=== PATIENT | female | born 1945 | race Caucasian/White ===

== ENCOUNTER 2018-10-04 13:36 | Emergency (ER) | payer MEDICARE ==
--- OUTSIDE RECORDS SUMMARY | 2018-10-04 13:53 | XMS REPORT | Continuity of Care Document ---
:1945 External Reference #:[id number] Author Name Carl Thomas M.D. Address [address] [place] [address] Care Team Providers Name Role Phone Rossy Jacobo M.D. Primary Care Physician Unavailable Payers Type Date Identification Numbers Payment Provider Subscriber Policy Number: [id number] [facility] Sofía Iglesias PayID: [id number] [address] [place] [address] Advance Directives Description No Information Available Problems Date Description Provider Status Onset: Elevated blood-pressure reading Active without diagnosis of hypertension Onset: Seizure Active Onset: Ruptured cerebral aneurysm Active Onset: 04/22/2016 Combined form of senile cataract Rayne Sosa O.D. Active Onset: 04/22/2016 Primary open-angle glaucoma, Rayne Sosa O.D. Active indeterminate stage Onset: 07/25/2016 Nuclear senile cataract Carl Thomas M.D. Active Onset: 07/25/2016 Bilateral primary open angle Carl Thomas M.D. Active glaucoma Onset: 02/06/2017 Bilateral primary open angle Carl Thomas M.D. Active glaucoma Onset: Osteoporosis Active Onset: 05/29/2018 Internal hordeolum Bridgett Sanchez O.D. Active Onset: 06/03/2018 Chalazion Carl Thomas M.D. 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 ETOH Use Occasionally consumes alcohol Tobacco Use Start: Unknown Patient has never smoked Recreational Drug Use Never Used Drugs Smoking Status Reviewed: 09/10/18 Patient has never smoked Allergies, Adverse Reactions, Alerts Date Description Reaction Status Severity Comments 04/22/2016 Lyrica Active 04/22/2016 Lomotil Active 04/22/2016 Contrast Dye Active 04/22/2016 Bacitracin Active Medications Medication Date Status Form Strength Qnty SIG Indications Ordering Provider Alendronate / Active Tablets 70mg Unknown Sodium 0000 Aspirin Adult / Active Tablets DR 81mg daily Unknown Low Dose 0000 Carbatrol / Active Caps ER 200mg Unknown 0000 12HR Lorazepam / Active Tablets 0.5mg Unknown 0000 Neurontin / Active Capsules 100mg twice a Unknown 0000 day every night at bedtime Valsartan-Colton / Active Tablets 160-12.5mg Unknown chlorothiazide 0000 Zonegran / Active Capsules 100mg Unknown 0000 Multi Vitamin 00/ Active Tablets Unknown Daily 0000 Warm Compresses / Active 3 times Carl 0000 daily Melo Thomas Erythromycin 05/29/ Hx Ointment 5mg/GM 1Tubes apply H00.024 Bridgett Amaral 2018 - ruel Sanchez, 09/09/ strip to O.D. 2019 left eyelid 3 times a day Immunizations Description No Information Available Vital Signs Date Vital Result Comment 06/03/2018 2:23pm BP Systolic 116 mmHg BP Diastolic 68 mmHg Heart Rate 72 /min Respiratory Rate 18 /min Results Description No Information Available Procedures Date Code Description Status 03/10/2018 98770 Scanning Computerized Ophthalmic Diagnostic Imag Posterior Completed Seg On 03/10/2018 33099 Est Patient Intermediate Exam Completed 09/09/2017 55918 Est Patient Comprehensive Exam Completed 08/12/2017 10084 Patient No Show For Appt Completed 02/06/2017 01275 Scanning Computerized Ophthalmic Diagnostic Imag Posterior Completed Seg On 02/06/2017 04623 Est Patient Intermediate Exam Completed 07/25/2016 18184 Est Patient Intermediate Exam Completed 04/22/2016 26251 Determination Of Refractive State Completed 04/22/2016 33603 New Patient Comprehensive Exam Completed 01/10/2014 37181 Trabeculoplasty By Laser Surgery Completed 12/31/2013 98393 Trabeculoplasty By Laser Surgery Completed 12/06/2013 31765 Scanning Computerized Ophthalmic Diagnostic Imag Posterior Completed Seg On 12/06/2013 08262 New Patient Comprehensive Exam Completed 12/06/2013 38365 Pachymetry Completed 12/18/2005 03995 Fundus Photography With Interpretation And Report Completed 12/12/2005 01161 Determination Of Refractive State Completed 12/12/2005 63992 Est Patient Comprehensive Exam Completed 07/25/2004 23649 Determination Of Refractive State Completed 07/25/2004 43960 Est Patient Comprehensive Exam Completed 07/16/2004 93752 Cancelled Appointment Completed 06/20/2004 91992 Rescheduled Appointment Completed Encounters Type Date Location Provider Dx Diagnosis Office Visit 06/03/2018 Carl Monroy, H00.14 Chalazion left 2:00p , eric Alejo upper eyelid Office Visit 06/01/2018 Rayne Monroy H00.14 Chalazion left 10:20a , eric Sosa O.D. upper eyelid H40.1134 Primary open-angle glaucoma, bilateral, indeterminate stage H25.13 Age-related nuclear cataract, bilateral Office Visit 05/29/2018 2:45p Frandy Sanchez, H00.024 Myra Edwards MD, eric Russ internum left upper eyelid Plan of Treatment 09/10/2018 - Carl Thomas M.D.H40.1134 Primary open-angle glaucoma, bilateral, indeterminate stageComments:Smoking can increase the risk of developing or worsening any eye related disease, as well as affect your overall health. If you are a smoker, we strongly recommend that you quit.If you are not a smoker, we strongly recommend that you do not start. Your glaucoma is stable at this time.Your eye pressure is within an acceptable range, and your testing does not show any further deterioration at this time. Please continue your treatment.Follow up:6 Month Follow Up IOP CHECK At your next visit, we are not planning to dilate your eyes. However, if you have any changes in your vision or new symptoms, there are certain situations that require us to dilate your eyes. If Dr. Thomas requests any additional testing, that may require extra time. If you have any questions before your next appointment, please call our office at .H25.13 Age-related nuclear cataract, bilateralComments:You have been diagnosed with cataracts. If you are happy with your vision as it is now, then we willsee you at your next scheduled appointment. If you feel like your vision is getting worse before your scheduled appointment, please call Mya Bass at [phone].
--- NOTE | 2018-10-04 13:59 | UC ---
Respiratory Complaint HPI - HPI Summary HPI Summary: 72 y/o female presents to the urgent care accompany by daughter c/o sore throat , body aches, fatigue, low grade fever at home, BOB for the past 4 days. Pt developed a productive cough about 2 days ago w/ yellowish phlegm. Pt has been taking Tylenol cold and flu. Last dose taken was yesterday. Today body aches and BOB is 7/10. Pt with PMHX of Stroke in 2005. Daughter denies SOB, wheezing, chest pain palpitations, abdominal pain, dizziness, N/V/D. - History of Current Complaint Stated Complaint: URI Time Seen by Provider: 10/04/18 13:58 Hx Obtained From: Patient Onset/Duration: Gradual Onset, Lasting Days - 4 days, Still Present Timing: Intermittent Episodes Severity Initially: Mild Severity Currently: Moderate Pain Intensity: 7 - body aches Pain Scale Used: 0-10 Numeric Character: Cough: Productive, Sputum Description: - yellowish at time Aggravating Factors: Recumbent Position Alleviating Factors: OTC Meds Associated Signs And Symptoms: Positive: Fever - low grade fever at home, URI, Nasal Congestion, Sinus Discomfort. Negative: Wheezing - Risk Factors Pulmonary Embolism Risk Factors: Negative Cardiac Risk Factors: Negative Pseudomonas Risk Factors: Negative Tuberculosis Risk Factors: Negative - Allergies/Home Medications Allergies/Adverse Reactions: Allergies Allergy/AdvReac Type Severity Reaction Status Date / Time MS Bacitracin [Bacitracin] Allergy Rash Verified 10/04/18 14:00 MS Iodinated Contrast Media Allergy Hives Verified 10/04/18 14:00 [CONTRAST DYE] MS Lamotrigine Allergy Rash Verified 10/04/18 14:00 [From Lamictal] MS Pregabalin [From Lyrica] Allergy Rash Verified 10/04/18 14:00 PMH/Surg Hx/FS Hx/Imm Hx Previously Healthy: Yes Other Endocrine History: Osteoporosis Cardiovascular History: Hypertension Neurological History: CVA - stroke in 2005, Seizures - Surgical History Surgical History: Yes Surgery Procedure, Year, and Place: CRANI[facility], [facility] - Family History Known Family History: Positive: Hypertension Family History: stroke - Social History Occupation: Retired Lives: With Family Alcohol Use: None Substance Use Type: None Smoking Status (MU): Former Smoker When Did the Patient Quit Smoking/Using Tobacco: MANY YRS AGO Review of Systems All Other Systems Reviewed And Are Negative: Yes Constitutional: Positive: Fever, Fatigue, Other - body aches Skin: Positive: Negative Eyes: Positive: Negative ENT: Positive: Sore Throat, Nasal Discharge - clear, Sinus Congestion Respiratory: Positive: Cough - productive w/ yellowish phlegm Cardiovascular: Positive: Negative Gastrointestinal: Positive: Negative Genitourinary: Positive: Negative Motor: Positive: Negative Neurovascular: Positive: Negative Musculoskeletal: Positive: Myalgia Neurological: Positive: Headache Psychological: Positive: Negative Is Patient Immunocompromised?: No Physical Exam - Summary Physical Exam Summary: Vital Signs Reviewed: Yes General: well developed, well nourished thin female sitting in the examining table w/o any apparent distress Eyes: Positive: Conjunctiva Clear - PERRLA, EOMI, fundi grossly normal ENT: Positive: Normal ENT inspection, Hearing grossly normal, Pharynx normal, Nasal congestion - edematous and erythematous nasal mucosa, Nasal drainage - clear drainage, TMs normal. Negative: Tonsillar swelling, Tonsillar exudate Neck: Positive: Supple, Nontender, No Lymphadenopathy Respiratory: no orthopnea or dyspnea. Able to speak in full sentences, no retractions or accessory muscle use, no tripod position, stridor, or head bobbing. Positive breath sounds bilaterally. Mild rhonchi in the posterior upper left lung, no wheezing, no crackles or rales. Cardiovascular: Positive: RRR, No Murmur, Pulses Normal, Brisk Capillary Refill Abdomen Description: Positive: Nontender, No Organomegaly, Soft. Negative: CVA Tenderness (R), CVA Tenderness (L) Bowel Sounds: Positive: Present Musculoskeletal Exam: Normal Musculoskeletal: Positive: Strength Intact, ROM Intact, No Edema Neurological Exam: Normal Psychological Exam: Normal Skin Exam: Normal Triage Information Reviewed: Yes Respiratory Course/Dx - Course Course Of Treatment: 72 y/o female presents to the urgent care accompany by daughter c/o sore throat , body aches, fatigue, low grade fever at home, BOB for the past 4 days. Pt developed a productive cough about 2 days ago w/ yellowish phlegm. Pt has been taking Tylenol cold and flu. Last dose taken was yesterday. Today body aches and BOB is 7/10. Pt with PMHX of Stroke in 2005. Daughter denies SOB, wheezing, chest pain palpitations, abdominal pain, dizziness, N/V/ D. Hx obtained. Pt w/ URI and mild Rhonchi on the left upper posterior lung on examination. Rapid Influenza A&B: positive Influenza A. Chest X-ray ordered to r/o pneumonia. Impression:Findings consistent with COPD, no acute cardiopulmonary disease observed as per radiologist. Pt wit influenza A. Pt given Tylenol PO to alleviate fever and symptoms by the nurse. Pt tolerated well medication. Pt Rx tamiflu PO and advised to continue taking Tylenol PO to control fever. Daughter and PT instructed to go to the emergency room immediately if symptoms worsens. Plan of care was discussed with the Daughter and PT. They understand and agreed. Pt's BP is elevated today advised to decrease salt in diet, monitor BP and f/u with PCP for further management. There were no further complaints or concerns. D/C instrucitons explained. Pt left the clinic hemodynamically stable, A&OX3 - Differential Dx/Diagnosis Differential Diagnosis/HQI/PQRI: Asthma, Bronchitis, Influenza, Sinusitis, Other - pneumonia Provider Diagnosis: Influenza A, Uncontrolled hypertension Discharge - Sign-Out/Discharge Documenting (check all that apply): Patient Departure - D/C home All imaging exams completed and their final reports reviewed: Yes - Discharge Plan Condition: Stable Disposition: HOME Prescriptions: Oseltamivir CAP* [Tamiflu CAP*] 75 mg PO BID #10 cap Patient Education Materials: Influenza (ED) Referrals: Rossy Jacobo MD [Primary Care Provider] - 2 Days Additional Instructions: 1- Please take the full course of the antiviral to avoid resistance. Encourage hand washing and wear a mask to avoid spreading. 2-Please continue taking Tylenol PO q6-8hrs prn as instructed after meals to alleviate fever, and sore throat. Increase fluid intake, eat well, rest and avoid strenuous exercise 3-Please close observation on your mother's symptoms. If temperature can't be controlled or if worsening symptoms please take her immediately to the ER for further management. Otherwise f/u with her PCP in 2-3days to make sure symptoms are improving. 4-Your BP is elevated today. please decrease salt in your diet, monitor BP and if it continues to be elevated please f/u with your PCP for further management. - Billing Disposition and Condition Condition: STABLE Disposition: Home - Attestation Statements Provider Attestation: I was available for consult. This patient was seen by the YANIQUE. The patient was not presented to , seen by or examined by me Simone Mc MD
[2018-10-04 14:08] VITALS: BP 142/76
[2018-10-04 14:21] LABS: Influenza A Molecular POSITIVE (Negative)
[2018-10-04] MEDS ORDERED: Acetaminophen TAB* 325 MG PO ONE (14:21)
== END 2018-10-04 15:00 | disposition home or self-care (01) ==
LOC: UCEAST 13:36
DX: J10.1 Influenza due to other identified influenza virus with other respiratory manifestations (principal); I10 Essential (primary) hypertension; Z87.891 Personal history of nicotine dependence; Z86.73 Personal history of transient ischemic attack (TIA), and cerebral infarction without residual deficits; Z88.8 Allergy status to other drugs, medicaments and biological substances; Z88.1 Allergy status to other antibiotic agents; Z91.041 Radiographic dye allergy status
CPT/HCPCS: 71046; 99212; A9270-GY; G0463

== ENCOUNTER 2021-08-02 11:54 | Inpatient (IN) ==
[2021-08-02] MEDS ORDERED: Morphine 4 MG/ML VIAL (1 ml) IV ONE (12:28)
[2021-08-02] MEDS ORDERED: Ondansetron 4 mg VIAL 2 MG/ML 2 ml VIAL IV ONE (12:28)
[2021-08-02 12:55] LABS: ABS Lymphocytes 0.3 10^3/ul (1.0-4.8); ABS Monocytes 0.5 10^3/ul (0-0.8); Hematocrit 39 % (35-47); Hemoglobin 13.7 g/dL (12.0-16.0); Lymphocyte % 5.2 %; Mean Corpuscular HGB Conc 35 g/dL (31-36); Mean Corpuscular Hemoglobin 36 pg (27-31); Mean Corpuscular Volume 102 fL (80-97); Mean Platelet Volume 7.6 fL (7.4-10.4); Platelet Count 183 10^3/uL (150-450); Red Blood Count 3.83 10^6 /uL (3.70-4.87); Red Cell Distribution Width 13 % (10-15); White Blood Count 5.8 10^3/uL (3.5-10.8)
[2021-08-02 13:01] LABS: INR 1.04 (0.86-1.15)
[2021-08-02 13:12] LABS: Albumin 4.7 g/dL (3.2-5.2); Albumin/Globulin Ratio 1.7 (1-3); Calcium 9.8 mg/dL (8.6-10.3); Globulin 2.8 g/dL (2-4); Potassium 3.1 mmol/L (3.5-5.0); Total Bilirubin 0.7 mg/dL (0.2-1.0); Total Protein 7.5 g/dL (6.4-8.9); eGFR CKD-EPI 94.1 (>60)
[2021-08-02] MEDS ORDERED: Potassium Chlor 20 meq TAB.ER PO ONE ×2 (14:46→15:39)
[2021-08-02] MEDS ORDERED: Morphine 2 MG/ML SYRINGE IV PRN (15:28)
[2021-08-02 15:33] LABS: Rapid COVID-19 Molecular Undetected (Undetected)
[2021-08-02 15:38] LABS: Magnesium 2.1 mg/dL (1.9-2.7)
[2021-08-02 16:03] LABS: Urine Appearance Clear; Urine Bilirubin Negative (Negative); Urine Blood 2+ (Negative); Urine Color Yellow; Urine Glucose Negative (Negative); Urine Ketones Negative (Negative); Urine Nitrite Negative (Negative); Urine Protein Negative (Negative); Urine Specific Gravity 1.006 (1.002-1.030); Urine Urobilinogen Negative (Negative)
[2021-08-02 16:07] LABS: Urine Bacteria Absent (Absent); Urine Red Blood Cell Trace(0-2/hpf) (Absent); Urine Squamous Epithelial Cell Present (Absent); Urine White Blood Cell Absent (Absent)
[2021-08-02] MEDS: Heparin 5000 UNITS/ML 1 mL VIAL SUBCUT SCH (16:43)
[2021-08-02] MEDS ORDERED: Senna TAB 8.6 mg TAB PO PRN (16:48)
[2021-08-02] MEDS ORDERED: ZONISAMIDE 50 MG PO SCH (21:00)
[2021-08-03] MEDS: Heparin 5000 UNITS/ML 1 mL VIAL SUBCUT SCH (01:35)
[2021-08-03] MEDS ORDERED: Lactated Ringers 1000 ml BAG 1,000 ML IV SCH (06:00)
[2021-08-03] MEDS ORDERED: Buffered Lidocaine 1% SYRIN 1 ml INTRADERM ONE (06:00)
[2021-08-03 06:11] LABS: ABS Lymphocytes 0.9 10^3/ul (1.0-4.8); ABS Monocytes 0.6 10^3/ul (0-0.8); ABS Neutrophils 2.9 10^3/ul (1.5-7.7); Eosinophil % 0.8 %; Hematocrit 35 % (35-47); Hemoglobin 12.3 g/dL (12.0-16.0); Lymphocyte % 19.3 %; Mean Corpuscular HGB Conc 35 g/dL (31-36); Mean Corpuscular Hemoglobin 36 pg (27-31); Mean Corpuscular Volume 102 fL (80-97); Mean Platelet Volume 7.8 fL (7.4-10.4); Platelet Count 158 10^3/uL (150-450); Red Blood Count 3.46 10^6 /uL (3.70-4.87); Red Cell Distribution Width 13 % (10-15); White Blood Count 4.4 10^3/uL (3.5-10.8)
[2021-08-03 06:45] LABS: Albumin 3.9 g/dL (3.2-5.2); Albumin/Globulin Ratio 1.6 (1-3); Calcium 8.8 mg/dL (8.6-10.3); Globulin 2.5 g/dL (2-4); Magnesium 1.9 mg/dL (1.9-2.7); Potassium 3.5 mmol/L (3.5-5.0); Total Bilirubin 0.5 mg/dL (0.2-1.0); Total Protein 6.4 g/dL (6.4-8.9); eGFR CKD-EPI 96.6 (>60)
[2021-08-03] MEDS ORDERED: ceFAZolin 2 GM in NS PREMIX 2 GM/100 ML BAG IVPB ONE (10:00)
[2021-08-03] MEDS ORDERED: Lidocaine 2% PF 5 ML VIAL ONE (10:30)
[2021-08-03] MEDS ORDERED: Dexamethasone IV 4 MG/ML VIAL 1 ml VIAL ONE (10:30)
[2021-08-03] MEDS ORDERED: Propofol 10 MG/ML 20 ML BTL ONE ×2 (10:30→13:46)
[2021-08-03] MEDS ORDERED: Ondansetron 4 mg VIAL 2 MG/ML 2 ml VIAL ONE (10:30)
[2021-08-03] MEDS ORDERED: Rocuronium 50 mg VIAL 10 mg/ml 5 ml VIAL (50 mg) ONE ×3 (10:31→13:19)
[2021-08-03] MEDS ORDERED: fentaNYL 250 mcg/5 ml 50 MCG/ML 5 ml VIAL (250 MCG) ONE (10:31)
[2021-08-03] MEDS ORDERED: Acetaminophen IV 1 GM/100ML 100 ML IV ONE (12:10)
[2021-08-03] MEDS ORDERED: fentaNYL 100 mcg/2 ml 50 MCG/ML VIAL ONE (13:19)
[2021-08-03] MEDS ORDERED: Phenylephrine IV 10 MG/ML 1 ml VIAL ONE (13:46)
[2021-08-03] MEDS ORDERED: diPHENhydraMINE IV 50 MG/ML 1 ml VIAL (BENADRYL) IV PRN (14:13)
[2021-08-03] MEDS ORDERED: Naloxone 0.4 mg VIAL 0.4 mg/ml 1 ml VIAL IV PRN (14:13)
[2021-08-03] MEDS ORDERED: DiMENhydriNATE IV 50 mg/ml 1 ml VIAL IV PUSH PRN (14:13)
[2021-08-03] MEDS ORDERED: Ondansetron 4 mg VIAL 2 MG/ML 2 ml VIAL IV PRN (14:13)
[2021-08-03] MEDS ORDERED: fentaNYL 100 mcg/2 ml 50 MCG/ML VIAL IV PRN (14:13)
[2021-08-03] MEDS: Albumin Human 25% 25 GM/100 ML IV SCH (17:17)
[2021-08-03] MEDS: Magnesium Hydroxide LIQ 30 ML UDC PO PRN (18:20)
[2021-08-03] MEDS: ceFAZolin 1 GM X 3 DOSES POST-OP Q8H (AddVan) IVPB SCH (21:22)
[2021-08-03] MEDS: CMCS:Zonisamide 100 mg CAP (NF) PO SCH (21:23)
[2021-08-04] MEDS ORDERED: Lactated Ringers 500 ml BAG 500 ML IV ONE
[2021-08-04] MEDS: Polyethylene Glycol 3350 17 GM PACKET PO SCH ×2 (00:39→09:33)
[2021-08-04 01:53] LABS: TSH Ultra Thyroid Stim Horm 1.64 mcIU/mL (0.34-5.60)
[2021-08-04 02:30] LABS: Albumin 3.2 g/dL (3.2-5.2); Albumin/Globulin Ratio 1.8 (1-3); Calcium 8.2 mg/dL (8.6-10.3); Globulin 1.8 g/dL (2-4); Magnesium 1.9 mg/dL (1.9-2.7); Potassium 3.6 mmol/L (3.5-5.0); Total Bilirubin 0.3 mg/dL (0.2-1.0); eGFR CKD-EPI 96.1 (>60)
[2021-08-04] MEDS ORDERED: Magnesium Sulfate IV 1GM/100ML 1 GM/100 ML BAG IV ONE (04:44)
[2021-08-04] MEDS ORDERED: Potassium Chlor 20 meq TAB.ER PO ONE (04:44)
[2021-08-04] MEDS: ceFAZolin 1 GM X 3 DOSES POST-OP Q8H (AddVan) IVPB SCH (05:15)
[2021-08-04] MEDS ORDERED: methylPREDNISolone SOD 40 mg/ml 1 ml VIAL IV ONE (05:30)
[2021-08-04 05:57] LABS: ABS Lymphocytes 0.4 10^3/ul (1.0-4.8); ABS Monocytes 0.8 10^3/ul (0-0.8); ABS Neutrophils 5.1 10^3/ul (1.5-7.7); Eosinophil % 0.1 %; Hematocrit 23 % (35-47); Hemoglobin 8.2 g/dL (12.0-16.0); Lymphocyte % 6.7 %; Mean Corpuscular HGB Conc 35 g/dL (31-36); Mean Corpuscular Hemoglobin 36 pg (27-31); Mean Corpuscular Volume 103 fL (80-97); Mean Platelet Volume 7.5 fL (7.4-10.4); Platelet Count 132 10^3/uL (150-450); Red Blood Count 2.28 10^6 /uL (3.70-4.87); Red Cell Distribution Width 13 % (10-15); White Blood Count 6.3 10^3/uL (3.5-10.8)
[2021-08-04 06:03] LABS: INR 1.22 (0.86-1.15)
[2021-08-04] MEDS: cefTRIAXone 1 gm/50 mL NS BAG 1 GM/50 ML BAG IVPB SCH (06:45)
[2021-08-04] MEDS ORDERED: Iohexol 350 (CONTRAST) 500 ML MDV IV ONE (07:15)
[2021-08-04] MEDS ORDERED: diPHENhydraMINE IV 50 MG/ML 1 ml VIAL (BENADRYL) IV ONE (08:30)
[2021-08-04] MEDS: Enoxaparin 30 MG/0.3 ML SYR SUBCUT SCH (09:33)
[2021-08-04 13:17] LABS: Hematocrit 24 % (35-47); Hemoglobin 8.2 g/dL (12.0-16.0)
[2021-08-04] MEDS ORDERED: Lactated Ringers 1000 ml BAG 1,000 ML IV ONE (13:49)
[2021-08-04 18:21] LABS: Hematocrit 23 % (35-47); Hemoglobin 8.2 g/dL (12.0-16.0)
[2021-08-04] MEDS: CMCS:Zonisamide 100 mg CAP (NF) PO SCH (20:43)
[2021-08-04] MEDS: Magnesium Hydroxide LIQ 30 ML UDC PO PRN (20:43)
[2021-08-05] MEDS: cefTRIAXone 1 gm/50 mL NS BAG 1 GM/50 ML BAG IVPB SCH (05:28)
[2021-08-05 05:54] LABS: ABS Lymphocytes 1.1 10^3/ul (1.0-4.8); ABS Neutrophils 4.6 10^3/ul (1.5-7.7); Eosinophil % 0.2 %; Hematocrit 21 % (35-47); Hemoglobin 7.4 g/dL (12.0-16.0); Lymphocyte % 16.6 %; Mean Corpuscular HGB Conc 35 g/dL (31-36); Mean Corpuscular Hemoglobin 36 pg (27-31); Mean Corpuscular Volume 103 fL (80-97); Mean Platelet Volume 7.6 fL (7.4-10.4); Platelet Count 145 10^3/uL (150-450); Red Blood Count 2.06 10^6 /uL (3.70-4.87); Red Cell Distribution Width 13 % (10-15); White Blood Count 6.7 10^3/uL (3.5-10.8)
[2021-08-05 06:15] LABS: Magnesium 2.1 mg/dL (1.9-2.7); Phosphorus 2.2 mg/dL (2.5-5.0); Potassium 3.7 mmol/L (3.5-5.0); eGFR CKD-EPI 97.9 (>60)
[2021-08-05 06:42] LABS: Urine Appearance Cloudy; Urine Bilirubin Negative (Negative); Urine Blood 1+ (Negative); Urine Color Yellow; Urine Glucose Negative (Negative); Urine Ketones Negative (Negative); Urine Nitrite Negative (Negative); Urine Protein Negative (Negative); Urine Specific Gravity 1.005 (1.002-1.030); Urine Urobilinogen Negative (Negative)
[2021-08-05 06:51] LABS: Urine Amorphous Crystals Present (Absent); Urine Bacteria Absent (Absent); Urine Red Blood Cell Trace(0-2/hpf) (Absent); Urine Squamous Epithelial Cell Present (Absent); Urine White Blood Cell Absent (Absent)
[2021-08-05] MEDS: Polyethylene Glycol 3350 17 GM PACKET PO SCH ×3 (10:26→20:31)
[2021-08-05] MEDS: Senna TAB 8.6 mg TAB PO SCH (10:27)
[2021-08-05] MEDS: Enoxaparin 30 MG/0.3 ML SYR SUBCUT SCH (10:34)
[2021-08-05] MEDS: CMCS:Zonisamide 100 mg CAP (NF) PO SCH (20:31)
[2021-08-06] MEDS: cefTRIAXone 1 gm/50 mL NS BAG 1 GM/50 ML BAG IVPB SCH (05:24)
[2021-08-06 05:51] LABS: ABS Lymphocytes 0.9 10^3/ul (1.0-4.8); ABS Monocytes 0.7 10^3/ul (0-0.8); ABS Neutrophils 3.8 10^3/ul (1.5-7.7); Eosinophil % 0.5 %; Hematocrit 25 % (35-47); Hemoglobin 8.9 g/dL (12.0-16.0); Lymphocyte % 17.2 %; Mean Corpuscular HGB Conc 35 g/dL (31-36); Mean Corpuscular Hemoglobin 35 pg (27-31); Mean Corpuscular Volume 100 fL (80-97); Mean Platelet Volume 7.3 fL (7.4-10.4); Platelet Count 166 10^3/uL (150-450); Red Blood Count 2.53 10^6 /uL (3.70-4.87); Red Cell Distribution Width 15 % (10-15); White Blood Count 5.5 10^3/uL (3.5-10.8)
[2021-08-06 06:24] LABS: Calcium 8.2 mg/dL (8.6-10.3); Potassium 3.7 mmol/L (3.5-5.0); eGFR CKD-EPI 100.9 (>60)
[2021-08-06] MEDS: Senna TAB 8.6 mg TAB PO SCH (11:05)
[2021-08-06] MEDS: Enoxaparin 30 MG/0.3 ML SYR SUBCUT SCH (11:09)
[2021-08-06] MEDS: Polyethylene Glycol 3350 17 GM PACKET PO SCH (11:12)
[2021-08-06 12:08] VITALS: BP 119/54
== END 2021-08-06 14:53 | DRG 522 ==
LOC: ED 11:54 → SSU 12:10 → SUATTDRO 14:38 → EDHOLD 14:38 → SSU 16:10 → PMRU 08-06 14:13
PROVIDERS: ADMIT Internal Medicine; ATTEND Hospitalist

== ENCOUNTER 2021-08-06 13:13 | Inpatient (IN) ==
[2021-08-06] MEDS ORDERED: Senna TAB 8.6 mg TAB PO PRN (15:53)
[2021-08-06] MEDS ORDERED: Polyethylene Glycol 3350 17 GM PACKET PO PRN (16:09)
[2021-08-06] MEDS: CMCS: Zonisamide 100 mg CAP (NF) PO SCH (21:19)
[2021-08-07] MEDS: Enoxaparin 30 MG/0.3 ML SYR SUBCUT SCH (09:24)
[2021-08-07] MEDS: CMCS: Zonisamide 100 mg CAP (NF) PO SCH (20:40)
[2021-08-07] MEDS ORDERED: Magnesium Hydroxide LIQ 30 ML UDC PO PRN (23:20)
[2021-08-08 07:24] LABS: ABS Eosinophils 0.1 10^3/ul (0-0.6); ABS Lymphocytes 0.6 10^3/ul (1.0-4.8); ABS Monocytes 0.5 10^3/ul (0-0.8); ABS Neutrophils 2.4 10^3/ul (1.5-7.7); Eosinophil % 2.9 %; Hematocrit 25 % (35-47); Hemoglobin 8.5 g/dL (12.0-16.0); Lymphocyte % 17.1 %; Mean Corpuscular HGB Conc 34 g/dL (31-36); Mean Corpuscular Hemoglobin 35 pg (27-31); Mean Corpuscular Volume 101 fL (80-97); Mean Platelet Volume 6.2 fL (7.4-10.4); Platelet Count 251 10^3/uL (150-450); Red Blood Count 2.46 10^6 /uL (3.70-4.87); Red Cell Distribution Width 14 % (10-15); White Blood Count 3.6 10^3/uL (3.5-10.8)
[2021-08-08 07:46] LABS: Albumin 3.3 g/dL (3.2-5.2); Albumin/Globulin Ratio 1.2 (1-3); Calcium 8.7 mg/dL (8.6-10.3); Globulin 2.7 g/dL (2-4); Potassium 4.1 mmol/L (3.5-5.0); Total Bilirubin 0.5 mg/dL (0.2-1.0); eGFR CKD-EPI 98.8 (>60)
[2021-08-08] MEDS: Enoxaparin 30 MG/0.3 ML SYR SUBCUT SCH (10:05)
[2021-08-08] MEDS: CMCS: Zonisamide 100 mg CAP (NF) PO SCH (19:58)
[2021-08-09] MEDS: Enoxaparin 30 MG/0.3 ML SYR SUBCUT SCH (09:34)
[2021-08-09] MEDS: CMCS: Zonisamide 100 mg CAP (NF) PO SCH (20:59)
[2021-08-10] MEDS: Enoxaparin 30 MG/0.3 ML SYR SUBCUT SCH (08:30)
[2021-08-10] MEDS: CMCS: Zonisamide 100 mg CAP (NF) PO SCH (20:34)
[2021-08-11] MEDS: Enoxaparin 30 MG/0.3 ML SYR SUBCUT SCH (07:54)
[2021-08-11] MEDS: CMCS: Zonisamide 100 mg CAP (NF) PO SCH (20:56)
[2021-08-12] MEDS: Enoxaparin 30 MG/0.3 ML SYR SUBCUT SCH (08:53)
[2021-08-12] MEDS: CMCS: Zonisamide 100 mg CAP (NF) PO SCH (21:03)
[2021-08-13] MEDS: Enoxaparin 30 MG/0.3 ML SYR SUBCUT SCH (08:26)
[2021-08-13] MEDS: CMCS: Zonisamide 100 mg CAP (NF) PO SCH (20:47)
[2021-08-14 05:59] VITALS: BP 143/60
[2021-08-14] MEDS: Enoxaparin 30 MG/0.3 ML SYR SUBCUT SCH (11:38)
== END 2021-08-14 13:17 | disposition home health service (06) | DRG 561 ==
LOC: PMRU 14:53
PROVIDERS: ADMIT Physical Medicine & Rehabilitation; ATTEND Physical Medicine & Rehabilitation